=== PATIENT | male | born 1960 | race Caucasian/White ===

== ENCOUNTER 2021-05-11 09:41 | Emergency (ER) | payer MEDICAID ==
[~2021-05-11] VITALS: Ht 170.2 cm; Wt 81.8 kg
[2021-05-11] MEDS ORDERED: MORPHINE SULFATE 4 MG/ML SYRINGE IVP ONE (10:00)
[2021-05-11] MEDS ORDERED: ONDANSETRON HCL 4 MG/2 ML VIAL IVP ONE (10:00)
[2021-05-11] MEDS ORDERED: KETOROLAC TROMETHAMINE 30 MG/ML VIAL IVP ONE (10:00)
[2021-05-11 11:14] VITALS: BP 141/84
== END 2021-05-11 11:47 | disposition home or self-care (01) ==
LOC: EMS 09:58
DX: S80.01XA Contusion of right knee, initial encounter (principal); W22.8XXA Striking against or struck by other objects, initial encounter; Y93.89 Activity, other specified; Y92.89 Other specified places as the place of occurrence of the external cause; Y99.8 Other external cause status; M17.11 Unilateral primary osteoarthritis, right knee
CPT/HCPCS: 29505; 73562; 73590; 96374; 96375; 99284; J1885; J2270; J2405